=== PATIENT | female | born 1960 | race Caucasian/White ===

== ENCOUNTER → 2016-09-16 | Outpatient (CLI) | payer OTHER ==
[~2016-09-16] MED LIST: B/P PILL; CLIN300C3 PO; HYDR-1231 PO; NF-ESOM40C PO; PRM25T PO; ZOCOR
== END ==
LOC: CARD 15:53
PROVIDERS: ATTEND Family Medicine
DX: R07.9 Chest pain, unspecified (principal)
CPT/HCPCS: 36415; 84484; 93005

== ENCOUNTER → 2016-10-06 | Outpatient (CLI) | payer OTHER ==
--- NOTE | 2016-10-06 23:59 | ECHOCARDIOGRAPHY REPORT ---
DATE OF SERVICE: 10/06/2016 TWO-DIMENSIONAL ECHOCARDIOGRAM REFERRING PHYSICIAN: Areli Kim DO INDICATION: Chest pain. MEASUREMENTS: LVED end-diastolic: 3.7 IVS thickness: 1.2 LVPW thickness: 1.2 Left atrial diameter: 2.6 Ejection fraction: 60% FINDINGS: 1. Technical quality is good. 2. The left ventricle is normal in size with normal contractility. Systolic function appeared to be normal. Estimated ejection fraction 60%. 3. The left atrium is normal in size. No clot or thrombus was seen within the left atrium. 4. The right atrium and right ventricle are normal in size. No clot or thrombus was seen within the right side. 5. The mitral valve is normal in morphology with mild mitral regurgitation by color Doppler flow. No mitral valve prolapse, no mitral valve stenosis. 6. The aortic valve is trileaflet with normal opening and closing pattern. No significant aortic stenosis or regurgitation was seen. 7. The tricuspid valve is normal in morphology with mild tricuspid regurgitation noted by color Doppler flow. Doppler tricuspid valve estimated pulmonary artery pressure of 12 plus right atrial pressure. 8. The pulmonic valve is functioning normally. 9. No pericardial effusion. CONCLUSIONS: 1. Normal left ventricular size and systolic function, estimated ejection fraction 60%. 2. Mild mitral and tricuspid regurgitation. 3. Estimated pulmonary artery pressure of 20 mmHg. Job ID: [id number] DocumentID: [id number] Dictated Date: 10/06/2016 16:15:10 Rat Trapper Date: 10/06/2016 20:13:28 Dictated By: PEYTON WEBER MD
== END ==
LOC: CARD 12:47
PROVIDERS: ATTEND Family Medicine
DX: R07.9 Chest pain, unspecified (principal)
CPT/HCPCS: 93306

== ENCOUNTER → 2016-11-03 | Outpatient (CLI) | payer OTHER | LOC: CARD 10:23 | PROVIDERS: ATTEND Family Medicine | DX: R07.9 Chest pain, unspecified (principal) | CPT/HCPCS: 93017 ==

== ENCOUNTER 2017-09-16 15:52 | Emergency (ER) | payer OTHER ==
[~2017-09-16] VITALS: Ht 160 cm; Wt 87.1 kg
[2017-09-16 16:00] VITALS: BP 122/64
== END 2017-09-16 16:00 | disposition home or self-care (01) ==
LOC: EDUNIT# 15:52 → ER 15:53
DX: S61.011D Laceration without foreign body of right thumb without damage to nail, subsequent encounter (principal); X58.XXXD Exposure to other specified factors, subsequent encounter

== ENCOUNTER 2018-10-01 09:20 | Emergency (ER) | payer BC, OTHER ==
[~2018-10-01] VITALS: Ht 160 cm; Wt 93.9 kg
[2018-10-01] MEDS ORDERED: NS IV 1000 ML 1,000 ML IV ONE ×2 (09:35→11:35)
[2018-10-01 09:42] LABS: BASOPHILS # (AUTO) 0.1 10^3/uL (0.0-0.1); BASOPHILS % (AUTO) 1 % (0-10); EOSINOPHILS # (AUTO) 0.3 10^3/uL (0.0-0.3); EOSINOPHILS % (AUTO) 5 % (0-10); HEMATOCRIT 42 % (35-52); HEMOGLOBIN 13.6 G/DL (11.5-16.0); LYMPHOCYTES # (AUTO) 2.6 X 10^3 (1.0-4.0); LYMPHOCYTES % (AUTO) 45 % (12-44); MEAN CORPUSCULAR HEMOGLOBIN 31 PG (25-34); MEAN CORPUSCULAR HGB CONC 32 G/DL (32-36); MEAN CORPUSCULAR VOLUME 94 FL (80-99); MEAN PLATELET VOLUME 11.3 FL (7.4-10.4); MONOCYTES # (AUTO) 0.3 X 10^3 (0.0-1.0); MONOCYTES % (AUTO) 5 % (0-12); NEUTROPHILS # (AUTO) 2.6 X 10^3 (1.8-7.8); NEUTROPHILS % (AUTO) 44 % (42-75); PLATELET COUNT 257 10^3/uL (130-400); RED CELL DISTRIBUTION WIDTH 12.6 % (10.0-14.5); WHITE BLOOD COUNT 5.8 10^3/uL (4.3-11.0)
[2018-10-01] MEDS ORDERED: FAMOTIDINE 20MG/2ML IV (PEPCID) IVP ONE (09:45)
[2018-10-01] MEDS ORDERED: diphenhydrAMINE 50 MG/ML INJ (BENADRYL) IVP ONE (09:45)
[2018-10-01 10:03] LABS: ALBUMIN 4.4 GM/DL (3.2-4.5); BILIRUBIN,TOTAL 0.5 MG/DL (0.1-1.0); CALCIUM 10.8 MG/DL (8.5-10.1); CREATININE SERUM 1.7 MG/DL (0.60-1.30); TOTAL PROTEIN 7.3 GM/DL (6.4-8.2)
--- NOTE | 2018-10-01 10:11 | NUR ---
PATIENT SLEEPING, NO SIGNS OF DISTRESS PRESENT AT THIS TIME. SPOUSE AT BEDSIDE.
--- NOTE | 2018-10-01 11:54 | NUR ---
PATIENT STATES SHE IS FEELING MUCH BETTER. SKIN IS IMPROVED AND IS NOT RED WHEN SHE ARRIVED TO ER.
--- NOTE | 2018-10-01 12:12 | ED General ---
General Chief Complaint: Dizziness/Syncope Stated Complaint: NEAR SYNCOPAL EPISODE Nursing Triage Note: PATIENT BROUGHT TO ER ROOM 2 VIA [facility] EMS FROM DR. KIM'S OFFICE WITH COMPLAINT OF POSSIBLE ALLERGIC REACTION, SYNCOPE AND BRADYCARDIA. PER PATIENT SHE WENT TO DR KIM'S OFFICE THIS MORNING DUE TO WAKING UP WITH RED, ITCHY SKIN. PATIENT WAS GIVEN STEROID INJECTION AT THE OFFICE AND THEN SUDDENLY BECAME BRADYCARDIC AND HAD A SYNCOPE EPISODE. PER EMS THE PATIENT HAD A EPISODE OF CONFUSION AT THIS TIME. PATIENT IS NOW AWAKE AND ALERT X 4. Nursing Sepsis Screen: No Definite Risk Source of Information: Patient Exam Limitations: No Limitations History of Present Illness Date Seen by Provider: Oct 01, 2018 Time Seen by Provider: 09:30 Initial Comments This 57-year-old woman presents to the emergency room via EMS from Dr. KIM's office where she had a near syncopal or brief syncopal episode after receiving a steroid injection. Patient was being seen for hives that developed this morning. She was feeling lightheaded prior to the injection and this exacerbated after the injection. Patient reports having intermittent episodes of hives to a lesser degree over the past month. They generally respond well to Claritin, but this morning Claritin did not seem to improve the hives. Patient is alert and oriented at the time of my exam. Patient was assisted to the floor and had no trauma related to the syncope. She denies any pain at this time. Patient also reports she had a tick bite on her right posterior thigh about 3 weeks ago. She has had no fevers. Her rash is now a diffuse erythematous and pruritic rash. No discrete hives are noted. He denies any swelling of the lips, tongue, or throat or difficulty breathing. Allergies and Home Medications Allergies Coded Allergies: NKANo Known Allergies (Verified Allergy, Mild, 10/01/18) Home Medications Cephalexin 500 Mg Capsule, 500 MG PO BID Prescribed by: FLAVIO BABCOCK on 10/01/18 1321 Epinephrine 0.3 Mg/0.3 Ml Auto.injct, 0.3 MG IJ UD Prescribed by: FLAVIO BABCOCK on 10/01/18 1217 Esomeprazole Mag Trihydrate 40 Mg Capsule.dr, 40 MG PO DAILY, (Reported) Famotidine 20 Mg Tablet, 20 MG PO BID Prescribed by: FLAVIO BABCOCK on 10/01/18 1217 Hydrocodone Bit/Acetaminophen 1 Tab Tablet, 1 TAB PO Q4H PRN for PAIN Prescribed by: SHUN MOORE on 11/09/142214 Prednisone 20 Mg Tab, 20 MG PO DAILY Take 3 tabs(60mg)daily, decrease by 1/2 tab(10mg)daily. Prescribed by: FLAVIO BABCOCK on 10/01/18 1217 Patient Home Medication List Home Medication List Reviewed: Yes Review of Systems Review of Systems Constitutional: no symptoms reported EENTM: no symptoms reported Respiratory: no symptoms reported Cardiovascular: see HPI Gastrointestinal: no symptoms reported Genitourinary: no symptoms reported : No Musculoskeletal: no symptoms reported Skin: see HPI Psychiatric/Neurological: See HPI Hematologic/Lymphatic: No Symptoms Reported Past Xdgklmi-Fzxrjw-Vuiemb Hx Past Med/Social Hx: Reviewed Nursing Past Med/Soc Hx Patient Social History Alcohol Use: Denies Use Recreational Drug Use: No Smoking Status: Former Smoker Former Smoker, Quit: Apr 27, 2012 2nd Hand Smoke Exposure: No Recent Foreign Travel: No Contact w/Someone Who Travel: No Recent Infectious Disease Expo: No Recent Hopitalizations: No Immunizations Up To Date Tetanus Booster (TDap): Unknown Seasonal Allergies Seasonal Allergies: No Past Medical History Surgeries: Yes Section Respiratory: No Cardiac: No Neurological: No : No Reproductive Disorders: No Sexually Transmitted Disease: No HIV/AIDS: No Gastrointestinal: No Musculoskeletal: No Endocrine: No HEENT: No Cancer: No Psychosocial: No Integumentary: Yes (pruritic hives) Blood Disorders: No Adverse Reaction/Blood Tranf: No Physical Exam Vital Signs Vital Signs - First Documented 10/01/18 09:20 Temp 95.0 Pulse 68 Resp 18 B/P (MAP) 121/68 (85) Pulse Ox 99 O2 Delivery Room Air Capillary Refill : Less Than 3 Seconds Height, Weight, BMI Height: 5'3.00" Weight: 207lbs. oz. 93.740809kh; 28.12 BMI Method:Actual General Appearance: No Apparent Distress, WD/WN HEENT: PERRL/EOMI, Normal ENT Inspection, Pharynx Normal Neck: Normal Inspection Respiratory: Lungs Clear, Normal Breath Sounds, No Accessory Muscle Use, No Respiratory Distress Cardiovascular: Regular Rate, Rhythm, No Edema, No Murmur Gastrointestinal: Non Tender, Soft Extremity: Normal Inspection, No Pedal Edema Neurologic/Psychiatric: Alert, Oriented x3, No Motor/Sensory Deficits, Normal Mood/Affect, pc analyst II-XII Norm as Tested Skin: Warm/Dry, Rash (generalized erythema with pruritus) Progress/Results/Core Measures Suspected Sepsis Recent Fever Within 48 Hours: No Infection Criteria Present: None New/Unexplained Altered Menta: No Sepsis Screen: No Definite Risk SIRS Temperature:95.0 Pulse: 68 Respiratory Rate: 18 Laboratory Tests 10/01/18 09:27: White Blood Count 5.8 Blood Pressure 121 /68 Mean: 85 Laboratory Tests 10/01/18 09:27: Creatinine 1.70H, Platelet Count 257, Total Bilirubin 0.5 Results/Orders Lab Results Laboratory Tests Test 10/01/18 09:27 10/01/18 12:47 Range/Units White Blood Count 5.8 4.3-11.0 10^3/uL Red Blood Count 4.46 4.35-5.85 10^6/uL Hemoglobin 13.6 11.5-16.0 G/DL Hematocrit 42 35-52 % Mean Corpuscular Volume 94 80-99 FL Mean Corpuscular Hemoglobin 31 25-34 PG Mean Corpuscular Hemoglobin Concent 32 32-36 G/DL Red Cell Distribution Width 12.6 10.0-14.5 % Platelet Count 257 130-400 10^3/uL Mean Platelet Volume 11.3 H 7.4-10.4 FL Neutrophils (%) (Auto) 44 42-75 % Lymphocytes (%) (Auto) 45 H 12-44 % Monocytes (%) (Auto) 5 0-12 % Eosinophils (%) (Auto) 5 0-10 % Basophils (%) (Auto) 1 0-10 % Neutrophils # (Auto) 2.6 1.8-7.8 X 10^3 Lymphocytes # (Auto) 2.6 1.0-4.0 X 10^3 Monocytes # (Auto) 0.3 0.0-1.0 X 10^3 Eosinophils # (Auto) 0.3 0.0-0.3 10^3/uL Basophils # (Auto) 0.1 0.0-0.1 10^3/uL Sodium Level 137 135-145 MMOL/L Potassium Level 4.0 3.6-5.0 MMOL/L Chloride Level 105 98-107 MMOL/L Carbon Dioxide Level 22 21-32 MMOL/L Anion Gap 10 5-14 MMOL/L Blood Urea Nitrogen 28 H 7-18 MG/DL Creatinine 1.70 H 0.60-1.30 MG/DL Estimat Glomerular Filtration Rate 31 BUN/Creatinine Ratio 16 Glucose Level 136 H 70-105 MG/DL Calcium Level 10.8 H 8.5-10.1 MG/DL Corrected Calcium 10.5 H 8.5-10.1 MG/DL Total Bilirubin 0.5 0.1-1.0 MG/DL Aspartate Amino Transf (AST/SGOT) 27 5-34 U/L Alanine Aminotransferase (ALT/SGPT) 36 0-55 U/L Alkaline Phosphatase 66 40-136 U/L Total Protein 7.3 6.4-8.2 GM/DL Albumin 4.4 3.2-4.5 GM/DL Urine Color YELLOW Urine Clarity SLIGHTLY CLOUDY Urine pH 5 5-9 Urine Specific [place] 1.015 L 1.016-1.022 Urine Protein 1+ H NEGATIVE Urine Glucose (UA) NEGATIVE NEGATIVE Urine Ketones NEGATIVE NEGATIVE Urine Nitrite NEGATIVE NEGATIVE Urine Bilirubin NEGATIVE NEGATIVE Urine Urobilinogen NORMAL NORMAL MG/DL Urine Leukocyte Esterase 3+ H NEGATIVE Urine RBC (Auto) 1+ H NEGATIVE Urine RBC NONE /HPF Urine WBC >100 H /HPF Urine Squamous Epithelial Cells 25-50 H /HPF Urine Crystals NONE /LPF Urine Bacteria FEW H /HPF Urine Casts NONE /LPF Urine Mucus NEGATIVE /LPF Urine Culture Indicated YES My Orders Orders - FLAVIO ORNELAS MD Cbc With Automated Diff (10/01/18 09:35) Comprehensive Metabolic Panel (10/01/18 09:35) Diphenhydramine Injection (Benadryl Inje (10/01/18 09:45) Famotidine Injection (Pepcid Injection) (10/01/18 09:45) Ekg Tracing (10/01/18 09:35) Monitor-Rhythm Ecg Trace Only (10/01/18 09:35) Ns Iv 1000 Ml (Sodium Chloride 0.9%) (10/01/18 09:35) Ns Iv 1000 Ml (Sodium Chloride 0.9%) (10/01/18 11:35) Ua Culture If Indicated (10/01/18 12:47) Urine Culture (10/01/18 12:47) Medications Given in ED Current Medications Medications Dose Ordered Sig/Mau Route Start Time Stop Time Status Last Admin Dose Admin Diphenhydramine HCl 25 mg ONCE ONCE IVP 10/01/18 09:45 10/01/18 09:46 DC 10/01/18 09:45 25 MG Famotidine 20 mg ONCE ONCE IVP 10/01/18 09:45 10/01/18 09:46 DC 10/01/18 09:45 20 MG Sodium Chloride 1,000 ml @ 0 mls/hr Q0M ONCE IV 10/01/18 09:35 10/01/18 09:37 DC 10/01/18 09:44 0 MLS/HR Sodium Chloride 1,000 ml @ 0 mls/hr Q0M ONCE IV 10/01/18 11:35 10/01/18 11:36 DC 10/01/18 11:48 1,000 MLS/HR Vital Signs/I&O 10/01/18 09:20 Temp 95.0 Pulse 68 Resp 18 B/P (MAP) 121/68 (85) Pulse Ox 99 O2 Delivery Room Air Capillary Refill : Less Than 3 Seconds 2 Blood Pressure Mean: 85 Progress Note #1: Time: 12:11 Progress Note Patient received a liter of IV fluid, Pepcid 20 mg, and Benadryl 25 mg. She received a steroid injection or Dr. KIM's office. Rash is nearly resolved now and the itching has improved. Her dizziness has improved as well. Labs were reviewed and she was noted to have acute kidney injury with elevated BUN and creatinine when compared with the last lab available in her chart. Patient does not know why she would be hypovolemic or dehydrated. She has not urinated since she has been in the ER despite receiving a liter of IV fluid. We will give her a second liter of normal saline and trial her standing and ambulating before dismissal. I discussed the case with Dr. KIM who will follow-up with her in the clinic next week and recheck her kidney function. I also plan to prescribe an EpiPen to have available if patient has a more severe reaction in the future. The cause of her hives is uncertain. Progress Note #2: Time: 13:27 Progress Note Patient feels better after 2 L of IV fluids. She had no lightheadedness upon standing and walking. She has had some dark urine and aching in her lower back recently and wonders if she has a urinary tract infection. UA was obtained which suggested UTI. She will be prescribed Keflex. ECG Initial ECG Impression Date: Oct 01, 2018 Initial ECG Impression Time: 09:27 Initial ECG Rate: 64 Initial ECG Rhythm: Normal Sinus Initial ECG Intervals: Normal Initial ECG Impression: Normal Comment Normal sinus rhythm with no ST elevation or depression. No abnormal intervals or axis deviation. Departure Impression Primary Impression: Syncope Qualified Codes: R55 - Syncope and collapse Additional Impressions: Hives Acute kidney injury Urinary tract infection Qualified Codes: N39.0 - Urinary tract infection, site not specified Disposition: HOME, SELF-CARE Condition: Improved Departure-Patient Inst. Decision time for Depature: 12:05 Referrals: ANTOINETTE KIM DO (PCP/Family) Primary Care Physician Patient Instructions: Epinephrine Autoinjectors, Hives, Syncope (Fainting) (DC), Urinary Tract Infection, Adult (DC) Add. Discharge Instructions: You may continue taking Claritin or generic loratadine daily to control itching and hives. For the next few days take prednisone and Pepcid (famotidine) as prescribed to prevent rebound hives. Be mindful of your environment and things consumed to try to determine what the trigger is. Allergy testing may be necessary at a later date to identify the trigger. Drink plenty of clear liquids. You should urinate frequently and urine should be a light yellow to clear color if you're hydrating appropriately. Follow-up with Dr. Kim next week to have your kidney function checked again. Review urine culture results with Dr. KIM at your follow-up appointment. Keep Benadryl (diphenhydramine) on hand and take 50 mg every 4 hours as needed for more severe itching or hives. If you develop a life-threatening reaction that involves tongue, lip, or throat swelling or shortness of breath, take Benadryl 50 mg and your EpiPen. Then present immediately to the ER or call 911. Return to care if you have any further problems or concerns. All discharge instructions reviewed with patient and/or family. Voiced understanding. Scripts Cephalexin (Keflex) 500 Mg Capsule 500 MG PO BID, #14 CAP Prov: FLAVIO ORNELAS MD 10/01/18 Epinephrine (Epipen 2-Rikki) 0.3 Mg/0.3 Ml Auto.injct 0.3 MG IJ UD, #1 EA Prov: FLAVIO ORNELAS MD 10/01/18 Prednisone (Prednisone) 20 Mg Tab 20 MG PO DAILY, #4 TAB Take 3 tabs(60mg)daily, decrease by 1/2 tab(10mg)daily. Prov: FLAVIO ORNELAS MD 10/01/18 Famotidine (Pepcid) 20 Mg Tablet 20 MG PO BID, #10 TAB Prov: FLAVIO ORNELAS MD 10/01/18 Copy Copies To 1: ANTOINETTE KIM JOSHUA T MD Oct 01, 2018 12:12
[2018-10-01] MEDS ORDERED: FAMO-119 PO (12:17)
[2018-10-01] MEDS ORDERED: EPIN0.3P3 IJ (12:17)
[2018-10-01] MEDS ORDERED: PRD20T PO (12:17)
--- NOTE | 2018-10-01 12:55 | NUR ---
PATIENT ABLE TO AMBULATE TO BATHROOM AND BACK TO ROOM WITHOUT DIFFICULTY. PATIENT DENIES ANY DIZZINESS OR FEELING OF SYNCOPE. PT REQUESTS THE ER CHECK HER URINE BECAUSE OF URINARY SYMPTOMS SHE HAS HAD RECENTLY. UA COLLECTED AND SENT TO LAB.
[2018-10-01 12:56] LABS: BILIRUBIN,URINE NEGATIVE (NEGATIVE); CLARITY,URINE SLIGHTLY CLOUDY; COLOR,URINE YELLOW; GLUCOSE, URINE (UA) NEGATIVE (NEGATIVE); KETONES,URINE NEGATIVE (NEGATIVE); LEUKOCYTE ESTERASE ,URINE 3+ (NEGATIVE); NITRITE,URINE NEGATIVE (NEGATIVE); PH,URINE 5 (5-9); PROTEIN,URINE 1+ (NEGATIVE); UROBILINOGEN,URINE NORMAL (NORMAL)
[2018-10-01 13:04] LABS: BACTERIA,URINE FEW /HPF; SQUAMOUS EPITHELIAL CELL,UR 25-50 /HPF; WBC,URINE >100 /HPF
[2018-10-01] MEDS ORDERED: CEPH-507 PO (13:21)
[2018-10-01 13:24] VITALS: BP 141/87
== END 2018-10-01 13:24 | disposition home or self-care (01) ==
LOC: EDUNIT# 09:20 → ER 09:21
DX: R55 Syncope and collapse (principal); L50.9 Urticaria, unspecified; N17.9 Acute kidney failure, unspecified; N39.0 Urinary tract infection, site not specified; Z79.52 Long term (current) use of systemic steroids; Z87.891 Personal history of nicotine dependence; Z98.890 Other specified postprocedural states
CPT/HCPCS: 36415; 80053; 81000; 85025; 87088; 96361; 96374; 96375

== ENCOUNTER 2018-12-26 13:59 | Emergency (ER) | payer BC ==
[~2018-12-26] VITALS: Ht 160 cm; Wt 93.9 kg
[~2018-12-26 13:59] MED LIST changes: +CEPH-507 PO; +EPIN0.3P3 IJ; +FAMO-119 PO; +PRD20T PO
[2018-12-26] MEDS ORDERED: diphenhydrAMINE 50 MG/ML INJ (BENADRYL) ONE (14:32)
[2018-12-26 14:42] LABS: BASOPHILS # (AUTO) 0.1 10^3/uL (0.0-0.1); BASOPHILS % (AUTO) 1 % (0-10); EOSINOPHILS # (AUTO) 0.3 10^3/uL (0.0-0.3); EOSINOPHILS % (AUTO) 3 % (0-10); HEMATOCRIT 43 % (35-52); HEMOGLOBIN 14.1 G/DL (11.5-16.0); LYMPHOCYTES # (AUTO) 2.8 X 10^3 (1.0-4.0); LYMPHOCYTES % (AUTO) 34 % (12-44); MEAN CORPUSCULAR HEMOGLOBIN 31 PG (25-34); MEAN CORPUSCULAR HGB CONC 33 G/DL (32-36); MEAN CORPUSCULAR VOLUME 95 FL (80-99); MEAN PLATELET VOLUME 11.3 FL (7.4-10.4); MONOCYTES # (AUTO) 0.7 X 10^3 (0.0-1.0); MONOCYTES % (AUTO) 8 % (0-12); NEUTROPHILS # (AUTO) 4.6 X 10^3 (1.8-7.8); NEUTROPHILS % (AUTO) 54 % (42-75); PLATELET COUNT 233 10^3/uL (130-400); RED CELL DISTRIBUTION WIDTH 13.1 % (10.0-14.5); WHITE BLOOD COUNT 8.4 10^3/uL (4.3-11.0)
[2018-12-26] MEDS ORDERED: methylPREDNISolone 125 MG (Solu-MEDROL) VIAL IVP ONE (14:45)
[2018-12-26] MEDS ORDERED: diphenhydrAMINE 50 MG/ML INJ (BENADRYL) IV ONE (14:45)
--- NOTE | 2018-12-26 14:48 | ED General ---
General Chief Complaint: Allergic Reaction Stated Complaint: ALLERGIC REACTION Source of Information: Patient Exam Limitations: No Limitations History of Present Illness Date Seen by Provider: Dec 26, 2018 Time Seen by Provider: 14:46 Initial Comments To ER with diffuse itchiness and erythema that began about 1 PM. She had a similar episode in the month of September following a tick bite, at that time she was seen by Dr. Kim, passed out in the office and was sent to the emergency room. Was subsequently told that she had a tick bite that could contribute to hives/allergic reactions, was told to watch her diet and avoid pork and beef products. She had eggs for breakfast and a calzone for lunch. Timing/Duration: 1-2 Days Severity: Moderate Associated Systoms: Denies Symptoms Allergies and Home Medications Allergies Coded Allergies: NKANo Known Allergies (Verified Allergy, Mild, 10/01/18) Home Medications Cephalexin 500 Mg Capsule, 500 MG PO BID Prescribed by: FLAVIO BABCOCK on 10/01/18 1321 Epinephrine 0.3 Mg/0.3 Ml Auto.injct, 0.3 MG IJ UD Prescribed by: FLAVIO BABCOCK on 10/01/18 1217 Esomeprazole Mag Trihydrate 40 Mg Capsule.dr, 40 MG PO DAILY, (Reported) Famotidine 20 Mg Tablet, 20 MG PO BID Prescribed by: FLAVIO BABCOCK on 10/01/18 1217 Hydrocodone Bit/Acetaminophen 1 Tab Tablet, 1 TAB PO Q4H PRN for PAIN Prescribed by: SHUN MOORE on 11/09/14 2215 Prednisone 20 Mg Tab, 20 MG PO DAILY Take 3 tabs(60mg)daily, decrease by 1/2 tab(10mg)daily. Prescribed by: FLAVIO BABCOCK on 10/01/18 1217 Patient Home Medication List Home Medication List Reviewed: Yes Review of Systems Review of Systems Constitutional: see HPI EENTM: see HPI Respiratory: no symptoms reported Cardiovascular: no symptoms reported Genitourinary: no symptoms reported Musculoskeletal: see HPI Skin: no symptoms reported Psychiatric/Neurological: No Symptoms Reported Hematologic/Lymphatic: No Symptoms Reported Past Znkinjr-Pqwheb-Fbngih Hx Patient Social History Former Smoker, Quit: Apr 27, 2012 2nd Hand Smoke Exposure: No Recent Foreign Travel: No Contact w/Someone Who Travel: No Recent Hopitalizations: No Immunizations Up To Date Tetanus Booster (TDap): Unknown Seasonal Allergies Seasonal Allergies: No Past Medical History Surgeries: Yes Section Respiratory: No Cardiac: No Neurological: No Reproductive Disorders: No Sexually Transmitted Disease: No HIV/AIDS: No Gastrointestinal: No Musculoskeletal: No Endocrine: No HEENT: No Cancer: No Psychosocial: No Integumentary: Yes (pruritic hives) Blood Disorders: No Adverse Reaction/Blood Tranf: No Physical Exam Vital Signs Vital Signs - First Documented 12/26/18 14:18 Temp 97.6 Pulse 83 Resp 20 B/P (MAP) 137/70 (92) Pulse Ox 95 O2 Delivery Room Air Capillary Refill : Height, Weight, BMI Height: 5'3.00" Weight: 207lbs. oz. 93.414854kh; 28.12 BMI Method:Actual General Appearance: No Apparent Distress, WD/WN, Other (no distress diffusely erythematous and itchy) Eyes: Bilateral Eye Normal Inspection, Bilateral Eye PERRL, Bilateral Eye EOMI HEENT: PERRL/EOMI, TMs Normal Neck: Full Range of Motion, Normal Inspection Respiratory: No Accessory Muscle Use, No Respiratory Distress Cardiovascular: Regular Rate, Rhythm, Normal Peripheral Pulses Gastrointestinal: Normal Bowel Sounds, Non Tender, Soft Skin: Normal Color, Warm/Dry, Rash (diffusely erythematous) Progress/Results/Core Measures Suspected Sepsis SIRS Temperature: Pulse: Respiratory Rate: Laboratory Tests 12/26/18 14:31: White Blood Count 8.4 Blood Pressure / Mean: Laboratory Tests 12/26/18 14:31: Creatinine 1.34H, Platelet Count 233, Total Bilirubin 0.6 Results/Orders Lab Results Laboratory Tests Test 12/26/18 14:31 Range/Units White Blood Count 8.4 4.3-11.0 10^3/uL Red Blood Count 4.53 4.35-5.85 10^6/uL Hemoglobin 14.1 11.5-16.0 G/DL Hematocrit 43 35-52 % Mean Corpuscular Volume 95 80-99 FL Mean Corpuscular Hemoglobin 31 25-34 PG Mean Corpuscular Hemoglobin Concent 33 32-36 G/DL Red Cell Distribution Width 13.1 10.0-14.5 % Platelet Count 233 130-400 10^3/uL Mean Platelet Volume 11.3 H 7.4-10.4 FL Neutrophils (%) (Auto) 54 42-75 % Lymphocytes (%) (Auto) 34 12-44 % Monocytes (%) (Auto) 8 0-12 % Eosinophils (%) (Auto) 3 0-10 % Basophils (%) (Auto) 1 0-10 % Neutrophils # (Auto) 4.6 1.8-7.8 X 10^3 Lymphocytes # (Auto) 2.8 1.0-4.0 X 10^3 Monocytes # (Auto) 0.7 0.0-1.0 X 10^3 Eosinophils # (Auto) 0.3 0.0-0.3 10^3/uL Basophils # (Auto) 0.1 0.0-0.1 10^3/uL Sodium Level 140 135-145 MMOL/L Potassium Level 3.9 3.6-5.0 MMOL/L Chloride Level 108 H 98-107 MMOL/L Carbon Dioxide Level 24 21-32 MMOL/L Anion Gap 8 5-14 MMOL/L Blood Urea Nitrogen 20 H 7-18 MG/DL Creatinine 1.34 H 0.60-1.30 MG/DL Estimat Glomerular Filtration Rate 41 BUN/Creatinine Ratio 15 Glucose Level 110 H 70-105 MG/DL Calcium Level 10.9 H 8.5-10.1 MG/DL Corrected Calcium 10.6 H 8.5-10.1 MG/DL Total Bilirubin 0.6 0.1-1.0 MG/DL Aspartate Amino Transf (AST/SGOT) 24 5-34 U/L Alanine Aminotransferase (ALT/SGPT) 29 0-55 U/L Alkaline Phosphatase 99 40-136 U/L Total Protein 7.7 6.4-8.2 GM/DL Albumin 4.4 3.2-4.5 GM/DL My Orders Orders - JB HERNÁNDEZ APRN Diphenhydramine Injection (Benadryl Inje (12/26/18 14:45) Methylprednisolone Sod Succ (Solu-Medrol (12/26/18 14:45) Ed Iv/Invasive Line Start (12/26/18 14:37) Cbc With Automated Diff (12/26/18 14:38) Ua Culture If Indicated (12/26/18 14:38) Drug Screen Stat (Urine) (12/26/18 14:38) Comprehensive Metabolic Panel (12/26/18 14:38) Diphenhydramine Injection (Benadryl Inje (12/26/18 14:32) Lactated Ringers (Lr 1000 Ml Iv Solution (12/26/18 15:30) Medications Given in ED Current Medications Medications Dose Ordered Sig/Mau Route Start Time Stop Time Status Last Admin Dose Admin Diphenhydramine HCl 25 mg ONCE ONCE IV 12/26/18 14:45 12/26/18 14:46 DC 12/26/18 14:46 25 MG Methylprednisolone Sodium Succinate 125 mg ONCE ONCE IVP 12/26/18 14:45 12/26/18 14:46 DC 12/26/18 14:47 125 MG Vital Signs/I&O 12/26/18 14:18 Temp 97.6 Pulse 83 Resp 20 B/P (MAP) 137/70 (92) Pulse Ox 95 O2 Delivery Room Air Capillary Refill : Departure Impression Primary Impression: Allergic reaction Qualified Codes: T78.40XA - Allergy, unspecified, initial encounter Disposition: HOME, SELF-CARE Condition: Stable Departure-Patient Inst. Decision time for Depature: 15:52 Referrals: ANTOINETTE KIM DO (PCP/Family) Primary Care Physician Patient Instructions: NO INSTRUCTIONS GIVEN Add. Discharge Instructions: 1. Return to ER for any concerns 2. Follow-up with your doctor next week 3. All discharge instructions reviewed with patient and/or family. Voiced understanding. JB HERNÁNDEZ APRN Dec 26, 2018 14:48
[2018-12-26 15:17] LABS: ALBUMIN 4.4 GM/DL (3.2-4.5); BILIRUBIN,TOTAL 0.6 MG/DL (0.1-1.0); CALCIUM 10.9 MG/DL (8.5-10.1); CREATININE SERUM 1.34 MG/DL (0.60-1.30); POTASSIUM 3.9 MMOL/L (3.6-5.0); TOTAL PROTEIN 7.7 GM/DL (6.4-8.2)
[2018-12-26] MEDS ORDERED: LACTATED RINGERS 1,000 ML IV SCH (15:30)
[2018-12-26 16:00] VITALS: BP 118/75
== END 2018-12-26 16:00 | disposition home or self-care (01) ==
LOC: EDUNIT# 13:59 → ER 14:00
DX: T78.40XA Allergy, unspecified, initial encounter (principal); Z79.52 Long term (current) use of systemic steroids; Z87.891 Personal history of nicotine dependence
CPT/HCPCS: 36415; 80053; 85025

== ENCOUNTER 2020-10-05 18:02 | Emergency (ER) | payer BC ==
[~2020-10-05] VITALS: Ht 160 cm; Wt 90.9 kg
[2020-10-05] MEDS ORDERED: diphenhydrAMINE 50 MG/ML INJ (BENADRYL) IV STA (20:41)
[2020-10-05] MEDS ORDERED: FAMOTIDINE 20MG/2ML IV (PEPCID) IV STA (20:41)
[2020-10-05] MEDS ORDERED: methylPREDNISolone 125 MG (Solu-MEDROL) VIAL IV STA (20:41)
--- NOTE | 2020-10-05 20:50 | ED Integumentary General ---
General Chief Complaint: Allergic Reaction Stated Complaint: HIVES Nursing Triage Note: pt reports she has had generalized hives since midnight last night. she has been taking benadryl throughout the day with minimal improvement which worsens as benadryl wears off. pt has a known allergy to beef et pork. she is concerned she was inadvertantly exposed. Source: patient History of Present Illness Date Seen by Provider: Oct 05, 2020 Time Seen by Provider: 20:37 Initial Comments PT ARRIVES VIA POV FROM HOME C/O GENERALIZED ITCHY RASH SINCE LAST NIGHT NO SWELLING ANYWHERE NO DIFFICULTY BREATHING OR SWALLOWING OR TALKING STATES SHE HAS HISTORY OF SAME SEVERAL TIMES. STATES SHE IS ALLERGIC TO BEEF AND PORK TOOK 2 BENADRYL THIS AM WHEN SHE WOKE UP--MINIMAL RELIEF. ATE OUT AT [facility] 2 NIGHTS AGO, THINKS SHE MIGHT HAVE EATEN SOMETHING THEN THAT SHE WAS ALLERGIC TO PCP: DR. SOLOMON Allergies and Home Medications Allergies Coded Allergies: [place] Known Allergies (Verified Allergy, Mild, 10/01/18) Home Medications Cephalexin 500 Mg Capsule, 500 MG PO BID Prescribed by: FLAVIO BABCOCK on 10/01/18 1321 Epinephrine 0.3 Mg/0.3 Ml Auto.injct, 0.3 MG IJ UD Prescribed by: FLAVIO BABCOCK on 10/01/18 1217 Esomeprazole Mag Trihydrate 40 Mg Capsule.dr, 40 MG PO DAILY, (Reported) Famotidine 20 Mg Tablet, 20 MG PO BID Prescribed by: FLAVIO BABCOCK on 10/01/18 1217 Famotidine 40 Mg Tablet, 40 MG PO DAILY Prescribed by: JENIFFER MARTINEZ on 10/05/202152 Hydrocodone Bit/Acetaminophen 1 Tab Tablet, 1 TAB PO Q4H PRN for PAIN Prescribed by: SHUN MOORE on 11/09/14 221 Prednisone 20 Mg Tab, 20 MG PO DAILY Take 3 tabs(60mg)daily, decrease by 1/2 tab(10mg)daily. Prescribed by: FLAVIO BABCOCK on 10/01/187 Prednisone 20 Mg Tab, 40 MG PO DAILY Prescribed by: JENIFFER MARTINEZ on 10/05/202152 Patient Home Medication List Home Medication List Reviewed: Yes Review of Systems Review of Systems Constitutional: no symptoms reported EENTM: no symptoms reported Respiratory: no symptoms reported Cardiovascular: no symptoms reported Gastrointestinal: no symptoms reported Genitourinary: no symptoms reported Musculoskeletal: no symptoms reported Skin: see HPI Psychiatric/Neurological: No Symptoms Reported Endocrine: No Symptoms Reported Hematologic/Lymphatic: No Symptoms Reported Past [id number] Hx Past Med/Social Hx: Reviewed and Corrections made Patient Social History Alcohol Use: Denies Use Smoking Status: Former Smoker Former Smoker, Quit: Apr 27, 2012 2nd Hand Smoke Exposure: No Recent Infectious Disease Expo: No Recent Hopitalizations: No Immunizations Up To Date Tetanus Booster (TDap): Unknown PED Vaccines UTD: Yes Seasonal Allergies Seasonal Allergies: No Past Medical History Surgeries: Yes Section Respiratory: No Cardiac: No Neurological: No Reproductive Disorders: No Sexually Transmitted Disease: No HIV/AIDS: No Genitourinary: No Gastrointestinal: No Musculoskeletal: No Endocrine: No HEENT: No Cancer: No Psychosocial: No Integumentary: Yes (pruritic hives d/t tick bite; ) Blood Disorders: No Adverse Reaction/Blood Tranf: No Physical Exam Vital Signs Vital Signs - First Documented 10/05/20 19:36 Temp 36.7 Pulse 114 Resp 18 B/P (MAP) 126/73 (90) Pulse Ox 97 O2 Delivery Room Air Capillary Refill : Less Than 3 Seconds General Appearance: WD/WN, no apparent distress, other (SLEEPING SOUNDLY. DOES NOT APPEAR TO BE IN ANY DISCOMFORT OR DISTRESS) HEENT: normal ENT inspection, other (NO SWELLING TO FACE, LIPS, TONGUE, UVULA OR POSTERIOR PHARYNX) Neck: normal inspection Cardiovascular: regular rate, rhythm, no edema, no murmur Respiratory: normal breath sounds, no respiratory distress, no accessory muscle use Gastrointestinal: soft Extremities: normal inspection, no pedal edema, normal capillary refill Neurologic/Psychiatric: no motor/sensory deficits, alert, normal mood/affect, oriented x 3 Skin: warm/dry, rash (DIFFUSE ERYTHEMA--PALMS. SOLES SPARED. POSTERIOR SCALP IS PARTIALLY INVOLVED. ) Progress/Results/Core Measures Results/Orders My Orders Orders - JENIFFER MARTINEZ DO Ed Iv/Invasive Line Start (10/05/20 20:41) Monitor-Rhythm Ecg Trace Only (10/05/20 20:41) Famotidine Injection (Pepcid Injection) (10/05/20 20:41) Diphenhydramine Injection (Benadryl Inje (10/05/20 20:41) Methylprednisolone Sod Succ (Solu-Medrol (10/05/20 20:41) Vital Signs/I&O 10/05/20 10/05/20 19:36 22:20 Temp 36.7 36.7 Pulse 114 78 Resp 18 18 B/P (MAP) 126/73 (90) 113/88 (90) Pulse Ox 97 99 O2 Delivery Room Air Room Air Blood Pressure Mean: 90 Progress Progress Note : Progress Note GIVEN BENADRYL, PEPCID AND SOLU-MEDROL--RASH AND ITCHING RESOLVING PT FEELS COMFORTABLE GOING HOME Departure Impression Primary Impression: ALLERGIC REACTION UNKNOWN CAUSE Disposition: 01 HOME, SELF-CARE Condition: Improved Departure-Patient Inst. Decision time for Depature: 21:50 Referrals: ANTOINETTE SOLOMON DO (PCP/Family) Primary Care Physician Patient Instructions: Hives (DC) Add. Discharge Instructions: LOTS OF FLUIDS CLARITIN 10 MG IN AM, BENADRYL 50 MG EVERY 4 HOURS IN PM, NEEDED FOR ITCHING AND RASH FOLLOW UP WITH DR. SOLOMON IF SYMPTOMS PERSIST, RETURN TO ER IF WORSE All discharge instructions reviewed with patient and/or family. Voiced understanding. Scripts Famotidine (Pepcid) 40 Mg Tablet 40 MG PO DAILY, #10 TAB Prov: JENIFFER MARTINEZ DO 10/05/20 Prednisone (Prednisone) 20 Mg Tab 40 MG PO DAILY, #6 TAB 0 Refills Prov: JENIFFER MARTINEZ DO 10/05/20 JENIFFER MARTINEZ DO Oct 05, 2020 20:50
[2020-10-05] MEDS ORDERED: FAMO40TA72 PO (21:53)
[2020-10-05] MEDS ORDERED: PRD20T PO (21:53)
[2020-10-05 22:20] VITALS: BP 113/88
== END 2020-10-05 22:20 | disposition home or self-care (01) ==
LOC: EDUNIT# 18:02 → ER 18:04
DX: T78.1XXA Other adverse food reactions, not elsewhere classified, initial encounter (principal); Z87.891 Personal history of nicotine dependence; Z79.52 Long term (current) use of systemic steroids
CPT/HCPCS: 93041

== ENCOUNTER → 2022-04-18 | Outpatient (CLI) | payer BC ==
[~2022-04-18] MED LIST changes: +FAMO40TA72 PO
== END ==
LOC: RT 08:41
PROVIDERS: ATTEND Family Medicine
DX: R07.9 Chest pain, unspecified (principal)
CPT/HCPCS: 93005

== ENCOUNTER → 2022-04-23 | Outpatient (CLI) | payer BC ==
--- NOTE | 2022-04-23 09:01 | Diagnostic Imaging Report ---
INDICATION: Routine screening. COMPARISON: 11/01/2012. TECHNIQUE: 2D and 3D bilateral screening mammography was performed with CAD. FINDINGS: Scattered fibroglandular densities are identified bilaterally. There is a nodular density in the retroareolar slightly lateral right breast, best seen on the CC view. This may be just above the nipple line on the MLO view. Additional views are recommended. The left breast appears stable. No malignant-appearing microcalcifications are seen. The axillae are unremarkable. IMPRESSION: Right breast density. Additional views are recommended for further evaluation. ACR BI-RADS Category 0: Incomplete. (Needs additional imaging evaluation). Result letter will be mailed to the patient. Note: At least 10% of breast cancer is not imaged by mammography. Dictated by: Dictated on workstation # [id number]
== END ==
LOC: RAD 07:45
PROVIDERS: ATTEND Family Medicine
DX: Z12.31 Encounter for screening mammogram for malignant neoplasm of breast (principal); N63.10 Unspecified lump in the right breast, unspecified quadrant; R07.9 Chest pain, unspecified
CPT/HCPCS: 77063; 77067; C8929; 93306

== ENCOUNTER → 2022-04-29 | Outpatient (CLI) | payer BC ==
[~2022-04-29] MED LIST changes: +CATHETER FLUSH 10 ML SYR IVP PRN
--- NOTE | 2022-04-29 13:31 | Diagnostic Imaging Report ---
INDICATION: Shortness of air. Patient was administered 5.4 mCi technetium 99m MAA intravenously and imaging over the chest was performed in multiple obliquities. There is homogeneous perfusion of both lungs. No pleural-based perfusion defect is identified. IMPRESSION: Normal perfusion lung scan. Dictated by: Dictated on workstation # [id number]
== END ==
LOC: CARD 10:14
PROVIDERS: ATTEND Family Medicine
DX: R06.02 Shortness of breath (principal)
CPT/HCPCS: 78580; A9540

== ENCOUNTER → 2022-04-30 | Outpatient (CLI) | payer BC ==
[~2022-04-30] MED LIST changes: -CATHETER FLUSH 10 ML SYR IVP PRN
--- NOTE | 2022-04-30 20:06 | Diagnostic Imaging Report ---
INDICATION: Right breast density. Patient presents for additional views. COMPARISON: Correlation is made with screening mammogram from 04/23/2022. EXAMINATION: Unilateral right 2D and 3D diagnostic mammography was performed. This included spot compression CC and ML views as well as conventional 90 degree lateral views. FINDINGS: Additional views show persistent small nodule in the upper outer right breast, approximately 2 cm from the nipple. No other mass is seen. Further evaluation with ultrasound is recommended. IMPRESSION: Tiny nodule upper outer right breast anterior depth. Further evaluation with ultrasound is recommended and will be performed today. ACR BI-RADS Category 0: Incomplete. (Needs additional imaging evaluation). Result letter will be mailed to the patient. Note: At least 10% of breast cancer is not imaged by mammography. Dictated by: Dictated on workstation # [id number]
--- NOTE | 2022-04-30 20:08 | Diagnostic Imaging Report ---
INDICATION: Right breast density. COMPARISON: Correlation is made with diagnostic mammograms earlier in the same day and screening mammogram from 04/23/2022. FINDINGS: Sonographic interrogation in the upper outer right breast demonstrates a simple appearing cyst at the 10 o'clock location, 2-3 cm from the nipple. This measures 5 mm x 3 mm x 3 mm. This likely accounts for the mammographic density. No other abnormalities are seen. IMPRESSION: Simple cyst at the 10 o'clock location in right breast, 2 to 3 cm from the nipple, likely accounting for the mammographic density. The patient may return to routine annual screening mammography. Dictated by: Dictated on workstation # [id number]
== END ==
LOC: RAD 13:15
PROVIDERS: ATTEND Family Medicine
DX: N60.01 Solitary cyst of right breast (principal)
CPT/HCPCS: 76642; 77065; G0279